=== PATIENT | male | born 1960 | race Caucasian/White ===

== ENCOUNTER 2024-05-26 14:03 | Outpatient (CLI) | payer MEDICARE, MEDICAID ==
[2024-05-26 15:08] VITALS: PULSE 96; RESP 14; O2SAT 98
== END 2024-05-26 23:59 | disposition home or self-care (01) ==
LOC: RT 14:03
PROVIDERS: ATTEND Student in an Organized Health Care Education/Training Program
DX: J45.40 Moderate persistent asthma, uncomplicated (principal)
CPT/HCPCS: 94010; 94760